=== PATIENT | female | born 1930 | race Asian ===

== ENCOUNTER → 2018-07-21 | Outpatient (CLI) | payer MEDICARE, OTHER | END | disposition home or self-care (01) | LOC: RADPV 10:00 | PROVIDERS: ATTEND Family Medicine | DX: S79.912A Unspecified injury of left hip, initial encounter (principal); M16.12 Unilateral primary osteoarthritis, left hip; X58.XXXA Exposure to other specified factors, initial encounter; Y93.89 Activity, other specified; Y92.89 Other specified places as the place of occurrence of the external cause; Y99.8 Other external cause status | CPT/HCPCS: 73503 ==

== ENCOUNTER → 2019-02-09 | Outpatient (CLI) | payer MEDICARE, OTHER | END | disposition home or self-care (01) | LOC: RADPV 10:45 | PROVIDERS: ATTEND Family Medicine | DX: J98.11 Atelectasis (principal); I70.0 Atherosclerosis of aorta; I51.7 Cardiomegaly ==

== ENCOUNTER → 2019-08-14 | Outpatient (CLI) | payer MEDICARE, OTHER | END | disposition home or self-care (01) | LOC: RADPV 14:04 | PROVIDERS: ATTEND Family Medicine | DX: R05 Cough (principal); I51.7 Cardiomegaly ==

== ENCOUNTER → 2020-12-31 | Outpatient (CLI) | payer MEDICARE, OTHER | END | disposition home or self-care (01) | LOC: RADPV 08:03 | PROVIDERS: ATTEND Family Medicine | DX: M16.12 Unilateral primary osteoarthritis, left hip (principal); N28.1 Cyst of kidney, acquired; R10.9 Unspecified abdominal pain; J90 Pleural effusion, not elsewhere classified; K91.5 Postcholecystectomy syndrome; I51.7 Cardiomegaly; I25.10 Atherosclerotic heart disease of native coronary artery without angina pectoris | CPT/HCPCS: 71101; 73503; 76700 ==